=== PATIENT | male | born 1965 | race Caucasian/White ===

== ENCOUNTER 2022-09-08 12:33 | Outpatient (REF) | payer BC, SELFPAY | END 2022-09-08 12:34 | disposition home or self-care (01) | LOC: HO.SH 12:33 | PROVIDERS: Visit Provider Physician Assistant Medical | DX: Z01.118 Encounter for examination of ears and hearing with other abnormal findings (principal); H90.3 Sensorineural hearing loss, bilateral; H93.13 Tinnitus, bilateral | CPT/HCPCS: 92557; 92567 ==